=== PATIENT | female | born 1965 | race African-American/Black ===

== ENCOUNTER 2016-11-24 14:15 | Emergency (ER) | payer MEDICAID ==
[~2016-11-24] VITALS: Ht 162.6 cm; Wt 73.0 kg
[~2016-11-24 14:15] MED LIST: ALBU2.5V13 IH; LISI-186 PO; METO-296 PO
[2016-11-24] MEDS ORDERED: SODIUM CHLORIDE 0.9% 1,000 ML IV ONE (20:10)
[2016-11-24] MEDS ORDERED: ONDANSETRON HCL 4MG/2ML VIAL IV STA (20:10)
[2016-11-24] MEDS ORDERED: FAMOTIDINE 20MG/2ML VIAL IV STA (20:10)
[2016-11-24 20:32] LABS: BASOPHILS % 0.7 % (0.0-2.0); EOSINOPHILS % 0.1 % (0.0-5.0); HEMATOCRIT. 42.4 % (36.0-48.0); HEMOGLOBIN. 13.8 g/dL (12.0-16.0); LYMPHOCYTES % 23.3 % (20.0-50.0); MEAN CORPUSCULAR HEMOGLOBIN 27.3 pg (28.0-32.0); MEAN CORPUSCULAR HGB CONC 32.6 g/dL (31.0-37.0); MEAN CORPUSCULAR VOLUME 83.9 fL (81.0-99.0); MEAN PLATELET VOLUME 10.1 fl (7.4-10.4); NEUTROPHILS % 63.9 % (40.0-76.0); PLATELET 215 x1000/uL (130-400); RED BLOOD CELL COUNT 5.06 mill/uL (4.2-5.4)
[2016-11-24 20:39] LABS: INR 1.1
[2016-11-24 20:43] LABS: HCG SCREEN NEGATIVE
[2016-11-24 20:50] LABS: ALANINE AMINOTRANSFERASE 18 IU/L (13-61); ALBUMIN 3.5 g/dL (3.4-5.0); ANION GAP 11; CALCIUM 9.2 mg/dL (8.5-10.1); CARBON DIOXIDE 31 mEq/L (21-32); CHLORIDE 101 mEq/L (98-107); INDEX HEMOLYSI 1 (1-3); INDEX ICTERIC 1 (1-4); INDEX LIPEMIC 1 (1-3); LIPASE 122 IU/L (73-393); UREA NITROGEN BLOOD 13 mg/dL (7-21); eGFR 57 mL/min (>60)
[2016-11-24 22:00] LABS: CLARITY URINE CLOUDY (CLEAR); COLOR URINE DARK YELLOW (YELLOW); GLUCOSE URINE NEGATIVE (NEGATIVE); KETONES URINE TRACE (NEGATIVE); LEUKOCYTE ESTERASE URINE NEGATIVE (NEGATIVE); NITRITE URINE NEGATIVE (NEGATIVE); OCCULT BLOOD URINE TRACE (NEGATIVE); PROTEIN URINE 2+ (NEGATIVE); SPECIFIC GRAVITY URINE 1.035 (1.005-1.030)
[2016-11-24 22:36] LABS: RBC URINE 0-2 /hpf (0-2); SQUAMOUS EPITHELIAL CELL URINE 1+ /lpf (RARE/1+); WBC URINE 0-2 /hpf (0-2)
[2016-11-24 22:37] LABS: BACTERIA URINE 3+
[2016-11-24 23:01] VITALS: BP 132/74
== END 2016-11-24 23:05 | disposition home or self-care (01) ==
LOC: ER 14:16
DX: R11.2 Nausea with vomiting, unspecified (principal); R19.7 Diarrhea, unspecified; F41.9 Anxiety disorder, unspecified; J45.909 Unspecified asthma, uncomplicated; I10 Essential (primary) hypertension; F17.210 Nicotine dependence, cigarettes, uncomplicated; F12.10 Cannabis abuse, uncomplicated; Z79.899 Other long term (current) drug therapy
CPT/HCPCS: 36415; 80053; 81001; 83690; 84703; 85025; 85610; 96361; 96374; 96375; 99284; J2405; J3490; J7030

== ENCOUNTER 2017-02-14 18:29 | Emergency (ER) | payer MEDICAID ==
[~2017-02-14] VITALS: Ht 167.6 cm; Wt 77.0 kg
[2017-02-14] MEDS ORDERED: FLUORESCEIN SODIUM 1MG/STRIP EACHEYE ONE (20:15)
[2017-02-14] MEDS ORDERED: TETRACAINE 0.5% OPHTH DROPS 4ML BOTHEYE ONE (20:15)
[2017-02-14] MEDS ORDERED: KETOROLAC 60MG/2ML VIAL IM ONE (20:15)
[2017-02-14 23:16] VITALS: BP 135/89
== END 2017-02-15 03:08 | disposition home or self-care (01) ==
LOC: ER 20:48
DX: S05.12XA Contusion of eyeball and orbital tissues, left eye, initial encounter (principal); S06.0X9A Concussion with loss of consciousness of unspecified duration, initial encounter; M85.80 Other specified disorders of bone density and structure, unspecified site; I10 Essential (primary) hypertension; J45.909 Unspecified asthma, uncomplicated; F41.9 Anxiety disorder, unspecified; F17.210 Nicotine dependence, cigarettes, uncomplicated; F12.10 Cannabis abuse, uncomplicated; Z98.890 Other specified postprocedural states; Y04.0XXA Assault by unarmed brawl or fight, initial encounter; Y93.89 Activity, other specified; Y92.512 Supermarket, store or market as the place of occurrence of the external cause
CPT/HCPCS: 70486; 96372; 99284; J1885

== ENCOUNTER 2017-03-11 03:49 | Emergency (ER) | payer MEDICAID ==
[~2017-03-11] VITALS: Ht 160 cm; Wt 69.0 kg
[~2017-03-11 03:49] MED LIST changes: -METO-296 PO; +METO-396 PO
[2017-03-11 04:53] VITALS: BP 145/86
== END 2017-03-11 11:38 | disposition left against medical advice (07) ==
LOC: ER 07:41
DX: M54.2 Cervicalgia (principal); M54.9 Dorsalgia, unspecified; Z53.21 Procedure and treatment not carried out due to patient leaving prior to being seen by health care provider

== ENCOUNTER 2017-11-11 12:58 | Emergency (ER) | payer MEDICAID ==
[~2017-11-11] VITALS: Ht 160 cm; Wt 67.0 kg
[2017-11-11 18:00] VITALS: BP 155/87
[2017-11-11] MEDS ORDERED: PREDNISONE 20MG TABLET PO SCH (18:00)
[2017-11-11] MEDS: LORAZEPAM 0.5MG TABLET PO SCH (18:26)
== END 2017-11-11 18:41 | disposition home or self-care (01) ==
LOC: ER 13:47
DX: J45.901 Unspecified asthma with (acute) exacerbation (principal); L08.9 Local infection of the skin and subcutaneous tissue, unspecified; E11.9 Type 2 diabetes mellitus without complications; F41.9 Anxiety disorder, unspecified; F17.200 Nicotine dependence, unspecified, uncomplicated
CPT/HCPCS: 71045; 99283; J7512; Z7610

== ENCOUNTER 2018-01-04 11:47 | Emergency (ER) | payer MEDICAID ==
[~2018-01-04] VITALS: Ht 162.6 cm; Wt 74.0 kg
[2018-01-04 13:07] LABS: KETONES URINE NEGATIVE (NEGATIVE); LEUKOCYTE ESTERASE URINE NEGATIVE (NEGATIVE); NITRITE URINE NEGATIVE (NEGATIVE); OCCULT BLOOD URINE NEGATIVE (NEGATIVE); PH URINE 6.5 (4.5-8.0); PROTEIN URINE NEGATIVE (NEGATIVE); SPECIFIC GRAVITY URINE 1.005 (1.005-1.030); UROBILINOGEN URINE 0.2 E.U./dL (0.2-1.0)
[2018-01-04 13:12] LABS: CLARITY URINE CLEAR (CLEAR); COLOR URINE YELLOW (YELLOW)
[2018-01-04 14:25] LABS: BASOPHILS % 1.3 % (0.0-2.0); EOSINOPHILS % 4.6 % (0.0-5.0); HEMATOCRIT. 41.6 % (36.0-48.0); HEMOGLOBIN. 13.9 g/dL (12.0-16.0); LYMPHOCYTES % 26.6 % (20.0-50.0); MEAN CORPUSCULAR HEMOGLOBIN 28.1 pg (28.0-32.0); MEAN CORPUSCULAR VOLUME 84.4 fL (81.0-99.0); MEAN PLATELET VOLUME 10.1 fl (7.4-10.4); MONOCYTES % 4.7 % (2.0-8.0); NEUTROPHILS % 62.8 % (40.0-76.0); PLATELET 231 x1000/uL (130-400); RED BLOOD CELL COUNT 4.93 mill/uL (4.2-5.4); RED CELL DISTRIBUTION WIDTH 15.5 % (11.6-14.6)
[2018-01-04 14:29] LABS: PROTHROMBIN TIME 10.6 sec (9.4-11.6)
[2018-01-04 14:32] LABS: CHLORIDE 105 mEq/L (98-107)
[2018-01-04] MEDS ORDERED: HYDROXYZINE 25MG TABLET PO ONE (15:00)
[2018-01-04 15:26] VITALS: BP 155/77
== END 2018-01-04 16:12 | disposition home or self-care (01) ==
LOC: ER 14:16
DX: L29.8 Other pruritus (principal); F12.10 Cannabis abuse, uncomplicated; F41.9 Anxiety disorder, unspecified; E11.9 Type 2 diabetes mellitus without complications
CPT/HCPCS: 36415; 80053; 81003; 83690; 85025; 85610; 99284

== ENCOUNTER 2018-08-08 16:12 | Emergency (ER) | payer MEDICAID ==
[~2018-08-08] VITALS: Ht 170.2 cm; Wt 73.0 kg
[2018-08-08] MEDS ORDERED: VALACYCLOVIR HCL 500MG TABLET PO STA (16:20)
[2018-08-08] MEDS ORDERED: SODIUM CHLORIDE 0.9% 1,000 ML IV ONE (16:20)
[2018-08-08] MEDS ORDERED: ONDANSETRON HCL 4MG/2ML INJ IV STA (16:20)
[2018-08-08] MEDS ORDERED: PREDNISONE 20MG TABLET PO ONE (16:30)
[2018-08-08] MEDS ORDERED: HYDROCODONE/ACETAMINOPHEN 5/325MG TABLET PO ONE (16:30)
[2018-08-08 17:14] LABS: BASOPHILS % 0.8 % (0.0-2.0); EOSINOPHILS % 1.5 % (0.0-5.0); HEMATOCRIT. 40.8 % (36.0-48.0); HEMOGLOBIN. 13.5 g/dL (12.0-16.0); LYMPHOCYTES % 28.2 % (20.0-50.0); MEAN CORPUSCULAR HEMOGLOBIN 28.1 pg (28.0-32.0); MEAN CORPUSCULAR VOLUME 84.8 fL (81.0-99.0); MEAN PLATELET VOLUME 10.7 fl (7.4-10.4); MONOCYTES % 5.9 % (2.0-8.0); NEUTROPHILS % 63.6 % (40.0-76.0); PLATELET 193 x1000/uL (130-400); RED BLOOD CELL COUNT 4.81 mill/uL (4.2-5.4); RED CELL DISTRIBUTION WIDTH 14.8 % (11.6-14.6)
[2018-08-08 17:20] LABS: CHLORIDE 107 mEq/L (98-107)
[2018-08-08 18:23] LABS: CLARITY URINE CLEAR (CLEAR); COLOR URINE YELLOW (YELLOW); KETONES URINE NEGATIVE (NEGATIVE); LEUKOCYTE ESTERASE URINE NEGATIVE (NEGATIVE); NITRITE URINE NEGATIVE (NEGATIVE); OCCULT BLOOD URINE NEGATIVE (NEGATIVE); PROTEIN URINE NEGATIVE (NEGATIVE); SPECIFIC GRAVITY URINE 1.006 (1.005-1.030); UROBILINOGEN URINE 0.2 E.U./dL (0.2-1.0)
[2018-08-08 19:30] VITALS: BP 152/91
== END 2018-08-08 19:42 | disposition home or self-care (01) ==
LOC: ER 16:12
DX: B02.9 Zoster without complications (principal); F41.9 Anxiety disorder, unspecified; I10 Essential (primary) hypertension; E11.9 Type 2 diabetes mellitus without complications; F17.200 Nicotine dependence, unspecified, uncomplicated
CPT/HCPCS: 36415; 80053; 81003; 83690; 85025; 96374; 99284; J2405; J7030; J7512

== ENCOUNTER 2018-08-13 10:47 | Emergency (ER) | payer MEDICAID ==
[~2018-08-13] VITALS: Ht 160 cm; Wt 76.0 kg
[2018-08-13 11:37] VITALS: BP 167/99
[2018-08-13] MEDS ORDERED: ALPR-341 PO (11:37)
[2018-08-13] MEDS ORDERED: LORAZEPAM 1MG TABLET PO ONE (12:00)
== END 2018-08-13 12:15 | disposition home or self-care (01) ==
LOC: ER 10:47
DX: F41.1 Generalized anxiety disorder (principal); I10 Essential (primary) hypertension
CPT/HCPCS: 99284

== ENCOUNTER 2019-01-06 12:29 | Emergency (ER) | payer MEDICAID ==
[~2019-01-06] VITALS: Ht 160 cm; Wt 73.0 kg
[~2019-01-06 12:29] MED LIST changes: +ALPR-341 PO
[2019-01-06] MEDS ORDERED: ALPRAZOLAM 0.25 MG TABLET PO ONE (14:30)
[2019-01-06 14:41] VITALS: BP 166/89
== END 2019-01-06 14:43 | disposition home or self-care (01) ==
LOC: ER 13:05
DX: F41.9 Anxiety disorder, unspecified (principal); J45.909 Unspecified asthma, uncomplicated; I10 Essential (primary) hypertension; F17.200 Nicotine dependence, unspecified, uncomplicated; Z79.899 Other long term (current) drug therapy
CPT/HCPCS: 99284

== ENCOUNTER 2021-12-24 10:36 | Emergency (ER) | payer MEDICAID ==
[~2021-12-24] VITALS: Ht 165.1 cm; Wt 82.0 kg
[2021-12-24] MEDS ORDERED: CEFTRIAXONE 2 G PREMIX 50 ML IV STA (11:08)
[2021-12-24] MEDS ORDERED: KETOROLAC 15MG/ML VIAL IV ONE (11:15)
[2021-12-24] MEDS ORDERED: DEXAMETHASONE 4MG/ML 1ML VIAL IV ONE (11:15)
[2021-12-24] MEDS ORDERED: CLINDAMYCIN 600 MG in DEXTROSE 5% WATER 50 ML IV ONE (11:15)
[2021-12-24] MEDS ORDERED: SODIUM CHLORIDE 0.9% 1,000 ML IV ONE (11:15)
[2021-12-24 11:41] LABS: BASOPHILS % 0.8 % (0.0-2.0); EOSINOPHILS % 2.7 % (0.0-5.0); HEMATOCRIT. 43.5 % (36.0-48.0); LYMPHOCYTES % 13.8 % (20.0-50.0); MEAN CORPUSCULAR HEMOGLOBIN 26.7 pg (28.0-32.0); MEAN PLATELET VOLUME 9.8 fl (7.4-10.4); MONOCYTES % 5.9 % (2.0-8.0); NEUTROPHILS % 76.8 % (40.0-76.0); PLATELET 264 x1000/uL (130-400); RED BLOOD CELL COUNT 5.24 mill/uL (4.2-5.4); RED CELL DISTRIBUTION WIDTH 15.4 % (11.6-14.6)
[2021-12-24 12:09] LABS: CHLORIDE 103 mEq/L (98-107)
[2021-12-24] MEDS ORDERED: IOHEXOL-300 100 ML BOTTLE ONE (13:51)
[2021-12-24 14:53] LABS: CLARITY URINE CLEAR (CLEAR); COLOR URINE YELLOW (YELLOW); KETONES URINE 1+ (NEGATIVE); LEUKOCYTE ESTERASE URINE NEGATIVE (NEGATIVE); NITRITE URINE NEGATIVE (NEGATIVE); OCCULT BLOOD URINE TRACE (NEGATIVE); PH URINE 7.5 (4.5-8.0); PROTEIN URINE TRACE (NEGATIVE); SPECIFIC GRAVITY URINE 1.087 (1.005-1.030)
[2021-12-24] MEDS ORDERED: IBUP-2028 MT (15:05)
[2021-12-24] MEDS ORDERED: CLIN300C12 MT (15:05)
[2021-12-24 15:31] VITALS: BP 132/74
== END 2021-12-24 15:32 | disposition home or self-care (01) ==
LOC: ER 10:43
DX: J36 Peritonsillar abscess (principal); R10.32 Left lower quadrant pain; I10 Essential (primary) hypertension; J45.909 Unspecified asthma, uncomplicated
CPT/HCPCS: 36415; 70491; 74177; 80053; 81003; 83605; 83690; 85025; 87040; 93005; 96361; 96365; 96375; 99285; J0696; J1100; J1885; J3490; J7030; J7060; Q9967; Z7610

== ENCOUNTER 2024-01-20 13:36 | Emergency (ER) | payer MEDICAID ==
[~2024-01-20] VITALS: Ht 167.6 cm; Wt 97.0 kg
[~2024-01-20 13:36] MED LIST changes: +CLIN-194 MT; +IBUP-2028 MT
[2024-01-20 13:44] VITALS: O2SAT 100
[2024-01-20] MEDS: ACETAMINOPHEN 325MG TABLET PO ONE (15:00)
[2024-01-20] MEDS: KETOROLAC 60MG/2ML VIAL IM ONE (15:00)
[2024-01-20] MEDS: CYCLOBENZAPRINE 10MG TABLET PO ONE (15:00)
[2024-01-20] MEDS ORDERED: CYCL5TAB MT (16:30)
[2024-01-20] MEDS ORDERED: LIDO700A15 TP (16:30)
[2024-01-20 17:11] VITALS: BP 154/89; PULSE 95; RESP 20; TEMP 98.4
== END 2024-01-20 15:21 | disposition home or self-care (01) ==
LOC: ER 13:36
DX: M25.512 Pain in left shoulder (principal); M25.562 Pain in left knee; F41.9 Anxiety disorder, unspecified; J45.909 Unspecified asthma, uncomplicated; I10 Essential (primary) hypertension
CPT/HCPCS: 99284; 73030; 73562; 96372; J1885

== ENCOUNTER 2025-04-14 13:11 | Emergency (ER) | payer MEDICAID ==
[~2025-04-14] VITALS: Ht 160 cm; Wt 82.0 kg
[~2025-04-14 13:11] MED LIST changes: +CYCL5TAB3 MT; +LIDO-53 TP
[2025-04-14 13:13] VITALS: BP 144/77; PULSE 104; RESP 18; TEMP 36.9; O2SAT 100
[2025-04-14 15:54] LABS: CLARITY URINE CLOUDY (CLEAR); COLOR URINE DARK YELLOW (YELLOW); GLUCOSE URINE NEGATIVE (NEGATIVE); KETONES URINE TRACE (NEGATIVE); LEUKOCYTE ESTERASE URINE 2+ (NEGATIVE); NITRITE URINE NEGATIVE (NEGATIVE); OCCULT BLOOD URINE NEGATIVE (NEGATIVE); PH URINE 5.5 (4.5-8.0); PROTEIN URINE TRACE (NEGATIVE); SPECIFIC GRAVITY URINE 1.019 (1.005-1.030); UROBILINOGEN URINE 1.0 E.U./dL (0.2-1.0)
[2025-04-14 16:16] LABS: BACTERIA URINE 2+; RBC URINE 0-2 /hpf (0-2); SQUAMOUS EPITHELIAL CELL URINE 2+ /lpf (RARE/1+)
[2025-04-14 16:27] LABS: BASOPHILS % 0.9 % (0.0-2.0); EOSINOPHILS % 3.6 % (0.0-5.0); HEMATOCRIT. 51.2 % (36.0-48.0); HEMOGLOBIN. 16.4 g/dL (12.0-16.0); LYMPHOCYTES % 32.7 % (20.0-50.0); MEAN PLATELET VOLUME 9.7 fl (7.4-10.4); MONOCYTES % 6.1 % (2.0-8.0); NEUTROPHILS % 56.7 % (40.0-76.0); PLATELET 305 x1000/uL (130-400); RED BLOOD CELL COUNT 6.05 mill/uL (4.2-5.4); RED CELL DISTRIBUTION WIDTH 14.7 % (11.6-14.6)
[2025-04-14 16:44] LABS: CREATININE 1.4 mg/dL (0.6-1.0); TROPONIN I HIGH SENSITIVITY < 4 ng/L (3.0-34); UREA NITROGEN BLOOD 11 mg/dL (9-23)
[2025-04-14 16:46] LABS: ASPARTATE AMINOTRANSFERASE 15 IU/L (<34); BILIRUBIN DIRECT 0.1 mg/dL (<=3.0); BILIRUBIN TOTAL 0.7 mg/dL (0.1-1.0); PROTEIN TOTAL 8.7 g/dL (6.0-8.3)
[2025-04-14 16:58] LABS: INR 1.0
[2025-04-14] MEDS ORDERED: GABA-529 MT (17:53)
[2025-04-14] MEDS ORDERED: ACET-2708 MT (18:03)
== END 2025-04-14 18:09 | disposition home or self-care (01) ==
LOC: ER 13:11
DX: M79.604 Pain in right leg (principal); M79.605 Pain in left leg; F41.9 Anxiety disorder, unspecified; J45.909 Unspecified asthma, uncomplicated; I10 Essential (primary) hypertension; Z79.899 Other long term (current) drug therapy
CPT/HCPCS: 36415; 73552; 73590; 80048; 80076; 81003; 83735; 84484; 85025; 99284

== ENCOUNTER 2025-08-09 16:51 | Emergency (ER) | payer MEDICAID ==
[~2025-08-09] VITALS: Ht 157.5 cm; Wt 79.0 kg
[~2025-08-09 16:51] MED LIST changes: +ACET-2708 MT; +GABA-529 MT
[2025-08-09 17:02] VITALS: O2SAT 100
[2025-08-09] MEDS ORDERED: ACET-2708 MT (18:27)
[2025-08-09] MEDS ORDERED: LIDO700A30 TP (18:27)
[2025-08-09] MEDS ORDERED: TRAMADOL 50MG TABLET PO ONE (18:30)
[2025-08-09] MEDS ORDERED: ACETAMINOPHEN WITH CODEINE 300/30MG TABLET PO ONE (18:45)
[2025-08-09] MEDS ORDERED: ACETAMINOPHEN WITH CODEINE 300/30MG TABLET PO SCH (19:00)
[2025-08-09] MEDS: LIDOCAINE 5% PATCH TOP SCH (19:03)
[2025-08-09 19:17] VITALS: BP 155/87; PULSE 99; RESP 17; TEMP 36.7; O2SAT 99
== END 2025-08-09 19:18 | disposition home or self-care (01) ==
LOC: ER 16:51
DX: M54.50 Low back pain, unspecified (principal); M79.604 Pain in right leg; M79.605 Pain in left leg; I10 Essential (primary) hypertension; J45.909 Unspecified asthma, uncomplicated
CPT/HCPCS: 99282